=== PATIENT | female | born 1975 | race Caucasian/White ===

== ENCOUNTER → 2020-07-18 09:35 | Outpatient (BNVA) | payer BC, OTHER, SELFPAY | PROVIDERS: Visit Provider Nurse Practitioner Women's Health | DX: Z01.419 Encounter for gynecological examination (general) (routine) without abnormal findings; Z12.39 Encounter for other screening for malignant neoplasm of breast; Z13.220 Encounter for screening for lipoid disorders; Z13.1 Encounter for screening for diabetes mellitus; Z13.228 Encounter for screening for other metabolic disorders | CPT/HCPCS: 80053; 80061; 83036; 84443; 88175 ==

== ENCOUNTER 2020-09-05 15:21 | Outpatient (CLI) | payer BC, OTHER, SELFPAY ==
--- NOTE | 2020-09-05 15:30 | MM_ITS ---
WS: [id number] BILATERAL SCREENING DIGITAL MAMMOGRAM WITH CAD HISTORY: screening COMPARISON: None available. Bilateral CC and MLO views submitted. Computer aided detection analyzed. Breast composition: The breasts are heterogeneously dense, which may obscure small masses. No suspici ous masses, microcalcifications or architectural distortion. Benign calcifications RIGHT breast. MM/[place] [id number] IMPRESSION: BI-RADS: 2-Benign FOLLOW UP: 1 Year Follow-up
== END 2020-09-05 15:22 | disposition home or self-care (01) ==
PROVIDERS: PCP Family Medicine; Visit Provider Nurse Practitioner Women's Health
DX: Z12.31 Encounter for screening mammogram for malignant neoplasm of breast (principal)
CPT/HCPCS: 77067

== ENCOUNTER → 2020-11-03 16:44 | Outpatient (BNVA) | payer BC, OTHER, SELFPAY | PROVIDERS: PCP Family Medicine; Visit Provider Family Medicine | DX: I10 Essential (primary) hypertension (principal); K21.9 Gastro-esophageal reflux disease without esophagitis; R51.9 Headache, unspecified; M54.2 Cervicalgia; Z20.828 Contact with and (suspected) exposure to other viral communicable diseases | CPT/HCPCS: 80048 ==

== ENCOUNTER → 2021-04-21 15:44 | Outpatient (BNVA) | payer BC, OTHER, SELFPAY | PROVIDERS: PCP Family Medicine; Visit Provider Family Medicine | DX: I10 Essential (primary) hypertension (principal); J44.9 Chronic obstructive pulmonary disease, unspecified; R05 Cough; M79.671 Pain in right foot; M79.672 Pain in left foot; M62.830 Muscle spasm of back; M54.2 Cervicalgia; E87.6 Hypokalemia | CPT/HCPCS: 80053; 83735; 85025 ==

== ENCOUNTER → 2021-07-09 14:54 | Outpatient (BNVA) | payer BC, OTHER, SELFPAY | PROVIDERS: PCP Family Medicine; Visit Provider Family Medicine | DX: I10 Essential (primary) hypertension (principal); J30.2 Other seasonal allergic rhinitis; N76.0 Acute vaginitis; B96.89 Other specified bacterial agents as the cause of diseases classified elsewhere; R05 Cough; Z13.220 Encounter for screening for lipoid disorders; Z13.6 Encounter for screening for cardiovascular disorders | CPT/HCPCS: 71046; 80053; 80061; 83735; 85025 ==

== ENCOUNTER → 2022-06-07 14:11 | Outpatient (BNVA) | payer BC, OTHER, SELFPAY | PROVIDERS: PCP Family Medicine; Visit Provider Emergency Medicine | DX: Z20.822 Contact with and (suspected) exposure to COVID-19 (principal) | CPT/HCPCS: 87635 ==

== ENCOUNTER → 2022-09-29 15:03 | Outpatient (BNVA) | payer BC, OTHER, SELFPAY | PROVIDERS: PCP Family Medicine; Visit Provider Family Medicine | DX: K21.00 Gastro-esophageal reflux disease with esophagitis, without bleeding (principal); I10 Essential (primary) hypertension; J30.2 Other seasonal allergic rhinitis; M79.671 Pain in right foot; M79.672 Pain in left foot; M62.830 Muscle spasm of back; Z13.220 Encounter for screening for lipoid disorders; Z13.6 Encounter for screening for cardiovascular disorders; L57.0 Actinic keratosis; Z12.31 Encounter for screening mammogram for malignant neoplasm of breast; M54.2 Cervicalgia | CPT/HCPCS: 80053; 80061 ==

== ENCOUNTER 2022-10-05 13:26 | Outpatient (CLI) | payer BC, OTHER, SELFPAY ==
--- NOTE | 2022-10-05 13:42 | MM_ITS ---
WS: [id number] BILATERAL 3D TOMOSYNTHESIS DIGITAL SCREENING MAMMOGRAPHY WITH CAD CLINICAL INFORMATION: Z12.39 - Encounter for other screening for malignant neop... HISTORY: Screening mammogram. No current complaints. COMPARISON: 2020 TECHNIQUE: Bilateral CC and MLO views. FINDINGS: The breasts are composed of heterogeneous fibroglandular density tissue, which can limit the detectio n of small underlying mass lesions. Small area of architectural distortion inner LEFT breast measurin g 7 mm best seen on the CC view. Recommend spot compression views and ultrasound if persistent. A few tiny incidental punctate calcifications. RIGHT breast is unchanged. MM/[place] [id number] IMPRESSION: BI-RADS: 0-Incomplete: Need additional imaging evaluation FOLLOW UP: Need Additional Imaging Recommend LEFT breast diagnostic mammography with spot compression views and ul trasound if persistent
== END 2022-10-05 13:27 | disposition home or self-care (01) ==
LOC: RAD 13:28
PROVIDERS: PCP Family Medicine; Visit Provider Family Medicine
DX: Z12.31 Encounter for screening mammogram for malignant neoplasm of breast (principal)
CPT/HCPCS: 77063; 77067

== ENCOUNTER 2022-10-29 14:11 | Outpatient (CLI) | payer BC, OTHER, SELFPAY ==
--- NOTE | 2022-10-29 14:50 | MM_ITS ---
WS: [id number] LEFT 3D TOMOSYNTHESIS DIGITAL MAMMOGRAPHY WITH CAD CLINICAL INFORMATION: ABNORMAL MAMMO COMPARISON: October 05, 2022 TECHNIQUE: 3 views of the left breast were obtained. FINDINGS: Scattered fibroglandular densities of the left breast. Previously described small area of architectur al distortion inner LEFT breast measuring 7 mm compresses out on the spot compression views. No other suspicious abnormalities. Recommend return to annual screening mammography. No suspicious focal mass, asymmetry, calcifications, or architectural distortion. No evidence of doron gnancy. MM/[id number] IMPRESSION: BI-RADS: 2-Benign FOLLOW UP: 1 Year Follow-up Recommend return to annual screening mammography.
== END 2022-10-29 14:12 | disposition home or self-care (01) ==
LOC: RAD 14:13
PROVIDERS: PCP Family Medicine; Visit Provider Family Medicine
DX: R92.8 Other abnormal and inconclusive findings on diagnostic imaging of breast (principal)
CPT/HCPCS: 77061; G0279

== ENCOUNTER → 2023-10-19 10:43 | Outpatient (BNVA) | payer BC, OTHER, SELFPAY | PROVIDERS: PCP Family Medicine; Visit Provider Family Medicine | DX: M54.9 Dorsalgia, unspecified (principal); G89.29 Other chronic pain; I10 Essential (primary) hypertension; K21.00 Gastro-esophageal reflux disease with esophagitis, without bleeding; M54.2 Cervicalgia; M62.830 Muscle spasm of back; Z13.220 Encounter for screening for lipoid disorders; Z13.6 Encounter for screening for cardiovascular disorders; N92.6 Irregular menstruation, unspecified; N95.1 Menopausal and female climacteric states; M47.896 Other spondylosis, lumbar region; M47.892 Other spondylosis, cervical region | CPT/HCPCS: 72040; 72100; 80053; 80061; 84443 ==

== ENCOUNTER → 2024-03-20 14:00 | Outpatient (BNVA) | payer BC, OTHER, SELFPAY | PROVIDERS: PCP Family Medicine; Visit Provider Nurse Practitioner Family | DX: R00.2 Palpitations (principal) | CPT/HCPCS: 93005 ==

== ENCOUNTER 2024-04-27 14:29 | Outpatient (CLI) | payer BC, OTHER, SELFPAY ==
--- NOTE | 2024-04-27 15:00 | USCV_ITS ---
Ambar Simmons Age: 48 Gender: F : 1975 Exam Date: 04/27/2024 14:55 Ordering Phys: Elvira Chaves MD Technologist: PILY Exam Location: [facility] [place] Indication: HTN BP: 142 / 93 HR: 62 Rhythm: Sinus Technical Quality: Adequate MEASUREMENTS (Male / Female) Normal Values 2D ECHO LV Diastolic Diameter PLAX 5.1 cm 4.2 - 5.9 / 3.9 - 5.3 cm IVS Diastolic Thickness 1.3 cm 0.6 - 1.0 / 0.6 - 0.9 cm IVS Systolic Thickness 1.5 cm LVPW Diastolic Thickness 1.5 cm 0.6 - 1.0 / 0.6 - 0.9 cm LVPW Systolic Thickness 1.9 cm LVOT Diameter 2.0 cm LV Ejection Fraction 2D Teich 64.1 % LV Ejection Fraction MOD 2C 65.2 % LV Ejection Fraction 2C AL 68.7 % LA Diameter 3.6 cm RA Systolic Volume 4C AL 42.8 ml RA Systolic Volume 4C MOD 41.6 ml LA Sys Volume AL 31.4 cm cubed LA Sys Volume Index AL 14.7 cm cubed/m squared Aorta at Sinotubular Diameter 2.2 cm IVC Diameter 2.0 cm M-MODE LA Ao Ratio MM 1.4 AV Cusp Separation MM 1.3 cm DOPPLER AV Peak Velocity 129.0 cm/s LVOT Peak Velocity 107.0 cm/s AV Area Cont Eq vti 3.0 cm squared AV Area Cont Eq pk 2.6 cm squared MV Peak Velocity 106.0 cm/s MV Area PHT 3.7 cm squared Mitral E to A Ratio 1.3 TR Peak Velocity 111.0 cm/s TR Peak Gradient 4.9 mmHg PV Peak Velocity 112.0 cm/s RV Ejection Time 0.3 s FINDINGS Left Ventricle Normal left ventricular size, systolic function and wall thickness, with no regional wall motion abnormalities. Normal left ventricular wall thickness. Normal diastolic filling pattern. Left ventricular ejection fraction is estimated at 60 %. Right Ventricle The right ventricle is normal in size and function. Right Atrium The right atrium is normal in size. Left Atrium The left atrium is normal in size. Mitral Valve Structurally normal mitral valve. Mild mitral valve regurgitation. Aortic Valve Structurally normal aortic valve without significant sclerosis or stenosis. There is no aortic regurgitation. Tricuspid Valve Structurally normal tricuspid valve without significant stenosis or regurgitation. Pulmonary artery systolic pressure is normal. Pulmonic Valve Pulmonic valve not well visualized. Pericardium Normal pericardium without effusion. Aorta Normal ascending aorta dimension. IVC The inferior vena cava appears normal. CONCLUSIONS Normal left ventricular size, systolic function and wall thickness, with no regional wall motion abnormalities. Normal left ventricular wall thickness. Normal diastolic filling pattern. Left ventricular ejection fraction is estimated at 60 %. Structurally normal mitral valve. Mild mitral valve regurgitation. There are no prior echocardiogram studies to compare. Dr. Bobby Carr MD (Electronically Signed) Final Date: 27 Apr 2024 18:14 S
== END 2024-04-27 14:30 | disposition home or self-care (01) ==
LOC: RAD 14:29
PROVIDERS: PCP Family Medicine; Visit Provider Family Medicine
DX: I10 Essential (primary) hypertension (principal)
CPT/HCPCS: 93306

== ENCOUNTER → 2024-10-03 15:51 | Outpatient (BNVA) | payer BC, SELFPAY | PROVIDERS: PCP Family Medicine; Visit Provider Family Medicine | DX: I10 Essential (primary) hypertension (principal) | CPT/HCPCS: 80053; 80061 ==

== ENCOUNTER → 2025-05-01 14:22 | Outpatient (BNVA) | payer BC, SELFPAY | PROVIDERS: PCP Family Medicine; Visit Provider Family Medicine | DX: M77.8 Other enthesopathies, not elsewhere classified (principal) | CPT/HCPCS: 73030 ==

== ENCOUNTER → 2025-05-20 13:14 | Outpatient (BNVA) | payer BC, SELFPAY | PROVIDERS: PCP Family Medicine; Visit Provider Orthopaedic Surgery | DX: M25.511 Pain in right shoulder (principal); G89.29 Other chronic pain | CPT/HCPCS: 73030 ==

== ENCOUNTER 2025-06-06 12:49 | Outpatient (CLI) | payer BC, SELFPAY ==
--- NOTE | 2025-06-06 13:00 | MRR_ITS ---
PROCEDURE INFORMATION: Exam: MR Right Upper Extremity Joint Without Contrast; Shoulder Exam date and time: 06/06/2025 1:21 PM Age: 49 years old Clinical indication: Right; PT states she hurt her shoulder in December when she fell and caught herself on a hand rail, states her shoulder pinches and catches and is painful when trying to move her arm up; Additional info: Right shoulder pain, possible rotator cuff tear TECHNIQUE: Imaging protocol: Magnetic resonance imaging of the right upper extremity without contrast. Exam focused on the shoulder. COMPARISON: CR XR shoulder RT min 2V* [id number] 05/20/2025 1:21 PM FINDINGS: Limitations: Motion artifact. Bones/joints: Normal osseous alignment. Mild osteophyte formation at the acromioclavicular joint is present. The articular cartilage is intact. Mild benign-appearing subcortical cystic changes in the anterior superior aspect of the greater tuberosity are noted. No significant joint effusion. No acute fracture. Glenoid labrum: Unremarkable. No evidence of tear. Supraspinatus tendon: Mild distal intrasubstance tearing of the supraspinatus tendon is noted with no evidence of a full-thickness tear. Infraspinatus tendon: Unremarkable. No evidence of tear. Subscapularis tendon: Unremarkable. No evidence of tear. Teres minor tendon: Unremarkable. No evidence of tear. Tendon of biceps brachii: Unremarkable. No evidence of tear. Glenohumeral ligaments: Unremarkable. Soft tissues: Unremarkable. MR/MR shoulder RT wo con* [id number] IMPRESSION: 1. Mild acromioclavicular joint primary osteoarthritic changes. 2. Mild partial-thickness tearing of the supraspinatus tendon.
== END 2025-06-06 12:50 | disposition home or self-care (01) ==
PROVIDERS: PCP Family Medicine; Visit Provider Orthopaedic Surgery
DX: M19.011 Primary osteoarthritis, right shoulder (principal); M75.111 Incomplete rotator cuff tear or rupture of right shoulder, not specified as traumatic
CPT/HCPCS: 73221

== ENCOUNTER → 2025-06-13 09:28 | Outpatient (BNVA) | payer BC, SELFPAY | PROVIDERS: PCP Family Medicine; Visit Provider Orthopaedic Surgery | DX: Z01.818 Encounter for other preprocedural examination (principal) | CPT/HCPCS: 80053; 81001; 85025 ==

== ENCOUNTER 2025-07-17 10:02 | Day surgery (SDC) | payer BC, SELFPAY ==
[2025-07-17] VITALS (15 sets, daily range): BP systolic 110–135; BP diastolic 72–95; PULSE 69–106; RESP 14–18; TEMP 36.1–36.6; O2SAT 94–100; BMI 25.7
[2025-07-17 10:40] LABS: OR HCG Qualitative Urine Negative (Negative)
[2025-07-17] MEDS: midazolam 1 mg/mL INJ 2 mL 2 MG IVP (11:20)
--- NOTE | 2025-07-17 11:31 | ANES.PREANE2 ---
Pre-Anesthetic Assessment Height/Weight: Height 1.65 m Weight 70.307 kg Temp Pulse Resp BP Pulse Ox O2 Del Method 97.4 F L 74 16 120/88 100 Room Air 07/17/25 10:31 07/17/25 10:31 07/17/25 10:31 07/17/25 10:31 07/17/25 10:31 07/17/25 10:47 Operation Date: 07/17/25 11:55 Proposed Procedures p Shoulder Arthroscopy(Right) - Deny Carrion MD s Rotator Cuff Repair - Open(Right) - Deny Carrion MD s Distal Clavicle Resection Acromioclavicular Decompression(Right) - Deny Carrion MD Familial anesthetic complications: None Was Beta Adam taken within 24 hours: N/A Was Clonidine taken within 24 hours: N/A Last intake: Intake Last Liquid Date 07/16/25 Last Liquid Time 23:30 Last Solid Date 07/16/25 Last Solid Time 21:00 Social No alcohol and No tobacco Exam alert, oriented x 3, clear to auscultation bilaterally and regular rate & rhythm Airway Mallampati: Class I Dentition: full CV/HEM Hypertension Anesthetic Plan ASA status: 2 Anesthesia: General and Regional (specify below) Risk of > 500 ml blood loss (7ml/kg in children): No Medications/Allergies Home Medications ?Medication ?Instructions ?Recorded ?Confirmed ?Last Taken ?Type fluticasone propionate 50 1 spray intranasal Q12H PRN 05/15/24 07/16/25 Unknown History mcg/actuation nasal allergies spray,suspension loratadine 10 mg tablet 10 mg PO DAILY PRN allergy 10/03/24 07/16/25 Unknown Rx symptoms 90 days #90 tabs hydrochlorothiazide 12.5 mg tablet 12.5 mg PO QAM 90 days #90 tabs 01/30/25 07/16/25 07/16/25 Rx cyclobenzaprine 5 mg tablet 5 mg PO TID PRN muscle spasm #60 05/01/25 07/16/25 Unknown Rx tabs omeprazole 20 mg capsule,delayed 20 mg PO DAILY PRN reflux #90 caps 05/01/25 07/16/25 Unknown Rx release tirzepatide (weight loss) 10 See Rx Instructions .Route 05/01/25 07/16/25 07/09/25 Rx mg/0.5 mL subcutaneous pen .COMPLEX #4 mL injector ([employer]) Allergies Allergy/AdvReac Type Severity Reaction Status Date / Time No Known Allergies Allergy Verified 07/16/25 09:56 Current Medications Generic Name Dose Route Start Last Admin Trade Name Elliottq PRN Reason Stop Dose Admin Sodium Chloride 1,000 mls @ 30 mls/hr 07/17/25 10:30 07/17/25 11:08 Sodium Chloride 0.9% IV 07/18/25 10:29 30 mls/hr .Q24H NORA Administration Midazolam HCl 2 mg 07/17/25 10:16 07/17/25 11:20 Midazolam 1 Mg/Ml Inj 2 Ml IVP 2 mg Q5M PRN Administration Preop Anxiety PFSH Anesthesia Medical History (Updated 06/19/25 @ 10:10 by Elvira Chaves MD) Hypertension History of gestational diabetes with second --- diet controlled No pertinent past medical history neghx: htn,thyroid,dvt/pe Surgical History H/O tubal ligation History of photorefractive keratectomy (PRK) H/O carpal tunnel repair bilateral Family History Sister Stroke, Onset Age: 45 Hyperlipidemia Hypertension Father Lung cancer Heart disease Mother Diabetes Type 2 Hyperlipidemia Hypertension Heart disease Stroke, Onset Age: 55 small stroke initially then with several TIAs Grandmother Heart disease Maternal garndmother Denies family history of Colon cancer Ovarian cancer Breast cancer Family history of thyroid problem Uterine cancer Social History Smoking and tobacco/nicotine status: never used tobacco/nicotine Additional social history: - Tobacco use: Denies Alcohol use: Social Drug use: Denies Female Reproductive History Spontaneous abortions: No Data Anesthesia Cardiac Studies: Echocardiogram 04/27/24 Anesthesia Procedures Nerve Block Nerve Block 1: Main Anesthesia: general anesthesia Time Out Performed: Yes Consent: requested by attending/covering physician, from patient, from other, risks and benefits reviewed and patient agrees to proceed Nerve block location: interscalene (R) Anesthesia monitors applied: pulse oximetry, EKG, BP cuff and oxygen Nerve block position: semi sitting Anesthetic Used: ropivicaine 0.5% (20 ml) and with decadron (4 mg) Ultrasound used to: recognize landmarks, visualize and ID brachial plexus, in supraclavicular region and visualize and ID interscalene groove Nerve Stimulator Used?: No Interscalene/Femoral BLK: 2 stimuplex 22 g needle used for position and inplane approach and visualize local anesthetic spread Injection: neg aspiration of heme Patient Tolerated Procedure: well Complications: none
--- NOTE | 2025-07-17 11:37 | SUR.PREOP ---
11:20 RIGHT INTRASCALENE NERVE BLOCK PERFORMED BY DOCTOR Dolan, USING 20ml OF 0.5% ROPIVACAINE WITH 4mg OF DECADRONE. PT ON INSTRUMENTATION FITTER SHOWING NSR. PT TOLERATED PROCEDURE WELL.
--- NOTE | 2025-07-17 11:44 | W.PM.OPSUD ---
Surgery/Procedure H&P Update DATE OF PROCEDURE: July 17, 2025 DATE H&P PERFORMED: 06/13/25 CHANGES TO PREVIOUS DOCUMENTATION: none PRIMARY INDICATION FOR PROCEDURE: Right right shoulder rotator cuff tear PLANNED PROCEDURE: Operation Date: 07/17/25 11:55 Proposed Procedures p Shoulder Arthroscopy(Right) - MD katia Diaz Rotator Cuff Repair - Open(Right) - MD katia Diaz Distal Clavicle Resection Acromioclavicular Decompression(Right) - Deny Carrion MD
[2025-07-17] MEDS: ceFAZolin 2,000 mg SDV 2000 MG IVP (12:14)
--- NOTE | 2025-07-17 13:35 | PM.OP ---
Operative Report Date of procedure: July 17, 2025 Surgeon: Deny Carrion MD Procedure: Preoperative diagnosis: Internal derangement of the right shoulder Postoperative diagnosis: Torn rotator cuff supraspinatus tendon, degenerative tearing labrum from superior aspect all the way down to the inferior aspect of the labrum. Extensive thickened bursa and acromial impingement Procedure: Diagnostic right shoulder arthroscopy with labral debridement and rotator cuff debridement. Mini open acromioplasty, bursectomy, rotator cuff repair. Surgeon: Deny Carrion MD Sed Special Education Teacher: YOGESH Holland's assistance was necessary for positioning patient on the table, assistance during the procedure, closure of the wound, dressing placement and transfer the patient to the PACU Anesthesia: General With preoperative scalene block EBL: 50 cc Indications: Ambar is a 49-year-old white female presented to the clinic with debilitating right shoulder pain after several months. Earlier in the year she slipped on steps and was falling down and grabbed onto a railing and had a forced abduction injury to her shoulder. She had failed all conservative measures. MRI demonstrated what appeared to be a tear in the rotator cuff as well as labral damage and therefore at this time was offered a diagnostic shoulder arthroscopy with all indicated procedures. All risk benefits treatment alternatives were discussed with her and she was agreeable to this at this time. Procedure: After obtaining her consent patient had preoperative scalene block administered to the holding area. Patient was then taken to the operative room placed on the operative table in supine position. General anesthetic administered. Once good anesthesia was achieved patient placed up in the beachchair position. She is padded out appropriately and secured to the bed. Right shoulder and arm were prepped and draped usual fashion. After surgical timeout standard posterior portals made with #11 blade camera cannula placed within the posterior aspect glenohumeral joint line. Anterior working portals also placed just inferior to the clavicle at the same level. Evaluation of the shoulder demonstrated tearing and fraying of the labrum. There is bleeding at its insertion at about the 3 o'clock position but there is no through and through tear away of the labrum from the glenoid. This degenerative tearing extended all the way up to the 12 o'clock position however biceps tendon anchoring was good. There is no changes in the biceps tendon. Around the hiatus there is fraying of the inner capsule and rotator cuff. And then on just lateral to this was fraying and tearing of the supraspinatus tendon. At this point mechanical shaver was used debride the labrum from 12:00 down to 3 or 4:00. Subsequently rotator cuff was debrided also as well as the tissue around the biceps hiatus. Arthroscopy was abandoned and small mini open incision was made off the anterior lateral aspect of the acromion. Sharp dissection taken on down the subcutaneous tissue electrocautery used hemostasis. Deltoid was removed from the anterior acromion with electrocautery. Subsequently using a microsagittal saw acromioplasty was undertaken to remove the type II hook of the acromion. Once underneath the acromion thick extensive bursa was throughout this was debrided completely to remove all adhesions and impinging tissue. At this point partial tear of the rotator cuff supraspinatus tear was identified. It was freshened with a #15 blade. Subsequently two 2.9 mm suture anchors were placed equidistant's apart through the tear of the supraspinatus. Each of these were double arm. Horizontal mattress sutures used to repair the rotator cuff back down to its original position. Areas washed with sterile irrigation. Deltoid reapproximated 0 Vicryl [id number] sutures. Subcutaneous 2 3 proximal 0 Vicryl interrupted sutures. Skin was closed with skin marbin. Wounds are clean and dry dressed Xeroform gauze, sterile gauze dressing, adhesive tape and occlusive dressing. Patient was placed in abduction pillow and sling. She was awakened transferred to cover room stable condition
--- NOTE | 2025-07-17 14:37 | SUR.PHASEII ---
14:35 ROM AND GOOD CAP REFILL TO FINGERS OF RIGHT HAND.
--- NOTE | 2025-07-17 16:15 | ANE.PACU2 ---
Inpatient post-anesthesia follow up: Airway intact: Yes Vital signs: Temperature 97.7 F Pulse Rate 81 Respiratory Rate 16 Blood Pressure 127/75 Pulse Oximetry 99 Oxygen Delivery Me thod Room Air Oxygen Flow Rate Fraction of Inspir ed Oxygen Hydration adequate: Yes Nausea and vomiting: No Pain level: 1 Mental status: Baseline
== END 2025-07-17 16:15 | disposition home or self-care (01) ==
PROVIDERS: Anesthesiology; PCP Family Medicine; Visit Provider Orthopaedic Surgery
PROC: (CPT 29805; principal; 2025-07-17 11:45)
PROC: (CPT 29820; 2025-07-17 11:45)
PROC: (CPT 23120; 2025-07-17 11:45)
DX: M24.811 Other specific joint derangements of right shoulder, not elsewhere classified (principal); S46.011A Strain of muscle(s) and tendon(s) of the rotator cuff of right shoulder, initial encounter; S43.431A Superior glenoid labrum lesion of right shoulder, initial encounter; M75.41 Impingement syndrome of right shoulder; I10 Essential (primary) hypertension; K21.9 Gastro-esophageal reflux disease without esophagitis
CPT/HCPCS: 29820; 29826; 81025; C1713; J0690; J1100; J2250; J2405; J2704; J2795; J3010; J3490; J7030; J9999